=== PATIENT | female | born 1990 | race Caucasian/White ===

== ENCOUNTER 2017-03-01 06:28 | Emergency (ER) | payer OTHER ==
[~2017-03-01] VITALS: Ht 172.7 cm; Wt 95.5 kg
[~2017-03-01 06:28] MED LIST: NO HOME MEDICATIONS; PREDNISONE20 MG PO; PRENATAL MVI
[2017-03-01 06:31] VITALS: TEMP 98.5
[2017-03-01 07:32] LABS: BASO % 0.3 % (0.0-2.0); EOS # 0.1 (0.0-0.7); EOS % 1.2 % (0-4.0); HEMATOCRIT 37.7 % (37.0-47.0); HEMOGLOBIN 13.1 g/dl (12.5-16.0); LYMPH % 8.8 % (20.0-51.0); MEAN CELL VOLUME 87 fl (80.0-100.0); MEAN CORPUSCULAR HEMOGLOBIN 30 pg (27.0-31.0); MEAN CORPUSCULAR HGB CONC 35 g/dl (33.0-37.0); MEAN PLATELET VOLUME 11.1 fl (7.4-10.4); MONO # 0.4 (0.1-0.6); MONO % 3.3 % (1.7-9.3); PLATELET COUNT 261 K/mm3 (130-400); RED BLOOD COUNT 4.33 M/mm3 (4.10-5.30); REDCELL DISTRIBUTION WIDTH-CV 12.8 % (11.5-14.5)
[2017-03-01 07:42] LABS: BILIRUBIN,TOTAL 0.4 mg/dL (0.0-1.0); CALCIUM 9.4 mg/dL (8.4-10.2); CREATININE, serum 0.55 mg/dL (0.52-1.25); POTASSIUM 3.9 mmol/L (3.4-5.0); TOTAL PROTEIN 7.4 gm/dL (6.4-8.2)
[2017-03-01 08:25] LABS: COLLECTION METHOD CLEAN CATCH
[2017-03-01 08:49] LABS: MUCOUS Present /lpf; PH 7 (5-8); URINE APPEARANCE Hazy; URINE BACTERIA Rare /hpf; URINE BILIRUBIN Negative (NEGATIVE); URINE BLOOD Negative (NEGATIVE); URINE COLOR Yellow; URINE GLUCOSE Negative (NEGATIVE); URINE KETONE Negative (NEGATIVE); URINE LEUKOCYTE ESTERASE 2+ (NEGATIVE); URINE NITRATE Negative (NEGATIVE); URINE PROTEIN(semi-quant) 1+ (NEGATIVE); URINE UROBILINOGEN Negative (NEGATIVE)
[2017-03-01] MEDS ORDERED: PHENERGAN 25 TA25 MG PO (09:58)
[2017-03-01] MEDS ORDERED: CEFTIN500 MG PO (10:05)
[2017-03-01 10:29] VITALS: BP 113/69; PULSE 97
== END 2017-03-01 10:30 | disposition home or self-care (01) ==
LOC: COL.ER 06:28
PROVIDERS: Emergency Medicine
DX: R11.10 Vomiting, unspecified (principal); N39.0 Urinary tract infection, site not specified
CPT/HCPCS: J2765; J7030

== ENCOUNTER 2017-08-05 04:11 | Inpatient (IN) | payer OTHER ==
[~2017-08-05] VITALS: Ht 172.7 cm; Wt 102.3 kg
[2017-08-05] VITALS (29 sets, daily range): BP systolic 109–142; BP diastolic 57–99; PULSE 68–116; TEMP 98.2–98.4
[~2017-08-05 04:11] MED LIST changes: +CEFTIN500 MG PO; +PHENERGAN 25 TA25 MG PO
[2017-08-05] MEDS ORDERED: AMOXICILLIN/CLA1 TA1 PO (04:51)
[2017-08-05] MEDS ORDERED: ZANTAC 7575 MG PO (05:09)
[2017-08-05 06:34] LABS: BASO # 0.1 (0.0-0.2); BASO % 0.4 % (0.0-2.0); EOS # 0.1 (0.0-0.7); EOS % 0.9 % (0-4.0); GRAN % 81.8 % (42.2-75.2); HEMOGLOBIN 11.8 g/dl (12.5-16.0); LYMPH # 1.7 (1.2-3.4); LYMPH % 12.3 % (20.0-51.0); MEAN CELL VOLUME 85 fl (80.0-100.0); MEAN CORPUSCULAR HEMOGLOBIN 28 pg (27.0-31.0); MEAN CORPUSCULAR HGB CONC 33 g/dl (33.0-37.0); MEAN PLATELET VOLUME 11.8 fl (7.4-10.4); MONO # 0.6 (0.1-0.6); MONO % 4.2 % (1.7-9.3); PLATELET COUNT 287 K/mm3 (130-400); REDCELL DISTRIBUTION WIDTH-CV 15.1 % (11.5-14.5)
[2017-08-05 06:44] LABS: HEMATOCRIT 35.5 % (37.0-47.0)
[2017-08-06 07:43] VITALS: BP 128/73; PULSE 78; TEMP 98.4
[2017-08-06] MEDS ORDERED: IBU800 M1 PO (08:34)
[2017-08-06] MEDS ORDERED: PERCOCET 325 MG1 TA2 PO (08:34)
[2017-08-06 15:33] VITALS: BP 124/76; PULSE 80; TEMP 98.1
[2017-08-06 19:30] VITALS: BP 121/88; PULSE 82
[2017-08-07 09:30] VITALS: BP 120/68; PULSE 82; TEMP 98
== END 2017-08-07 10:40 | disposition home or self-care (01) | DRG 775 ==
LOC: LDRO 04:11 → LDR 05:50 → OB 05:50
PROVIDERS: Obstetrics & Gynecology
PROC: 10E0XZZ Delivery of Products of Conception, External Approach (ICD-10-PCS; principal; 2017-08-05)
PROC: 0UQMXZZ Repair Vulva, External Approach (ICD-10-PCS; 2017-08-05)
PROC: 0UQGXZZ Repair Vagina, External Approach (ICD-10-PCS; 2017-08-05)
DX: O71.82 Other specified trauma to perineum and vulva (principal); O71.4 Obstetric high vaginal laceration alone; Z3A.39 39 weeks gestation of pregnancy; Z37.0 Single live birth; Z22.330 Carrier of Group B streptococcus
CPT/HCPCS: J2540; J2590; J2791; J7120

== ENCOUNTER 2018-09-08 20:07 | Emergency (ER) | payer OTHER ==
[~2018-09-08] VITALS: Ht 172.7 cm; Wt 95.5 kg
[~2018-09-08 20:07] MED LIST changes: +AMOXICILLIN/CLA1 TA1 PO; +IBU800 M1 PO; +PERCOCET 325 MG1 TA2 PO; +ZANTAC 7575 MG PO
[2018-09-08 20:48] VITALS: BP 135/76; PULSE 85; TEMP 98.3
[2018-09-08 21:26] LABS: COLLECTION METHOD CLEAN CATCH
[2018-09-08 21:47] LABS: BASO # 0.1 (0.0-0.2); BASO % 0.8 % (0.0-2.0); EOS # 0.4 (0.0-0.7); GRAN # 7.7 (1.4-6.5); GRAN % 65.3 % (42.2-75.2); HEMATOCRIT 41.1 % (37.0-47.0); HEMOGLOBIN 13.5 g/dl (12.5-16.0); LYMPH # 2.9 (1.2-3.4); LYMPH % 24.7 % (20.0-51.0); MEAN CELL VOLUME 90 fl (80.0-100.0); MEAN CORPUSCULAR HEMOGLOBIN 30 pg (27.0-31.0); MEAN CORPUSCULAR HGB CONC 33 g/dl (33.0-37.0); MEAN PLATELET VOLUME 10.9 fl (7.4-10.4); MONO # 0.7 (0.1-0.6); MONO % 5.9 % (1.7-9.3); PLATELET COUNT 352 K/mm3 (130-400); RED BLOOD COUNT 4.56 M/mm3 (4.10-5.30); REDCELL DISTRIBUTION WIDTH-CV 12.8 % (11.5-14.5)
[2018-09-08 21:52] LABS: ALBUMIN 4.2 gm/dL (3.5-5.0); BILIRUBIN,TOTAL 0.3 mg/dL (0.0-1.0); C-REACTIVE PROTEIN 0.9 mg/dL (0.0-0.9); CALCIUM 9.3 mg/dL (8.4-10.2); CREATININE, serum 0.69 (0.52-1.25); POTASSIUM 3.7 mmol/L (3.4-5.0); TOTAL PROTEIN 7.9 gm/dL (6.4-8.2)
[2018-09-08 21:52] LABS: MUCOUS Present /lpf; PH 5 (5-8); URINE APPEARANCE Hazy; URINE BACTERIA None Seen /hpf; URINE BILIRUBIN Negative (NEGATIVE); URINE BLOOD Negative (NEGATIVE); URINE COLOR Yellow; URINE GLUCOSE Negative (NEGATIVE); URINE KETONE Negative (NEGATIVE); URINE LEUKOCYTE ESTERASE 1+ (NEGATIVE); URINE NITRATE Negative (NEGATIVE); URINE PROTEIN(semi-quant) Negative (NEGATIVE); URINE UROBILINOGEN Negative (NEGATIVE)
== END 2018-09-08 23:19 | disposition home or self-care (01) ==
LOC: COL.ER 20:07
PROVIDERS: Physician Assistant
DX: T83.39XA Other mechanical complication of intrauterine contraceptive device, initial encounter (principal)

== ENCOUNTER → 2018-09-13 | Outpatient (CLI) | payer OTHER | LOC: COL.RAD 14:15 | DX: Z30.431 Encounter for routine checking of intrauterine contraceptive device (principal); R10.2 Pelvic and perineal pain ==